=== PATIENT | male | born 1985 | race Two or more races ===

== ENCOUNTER 2017-11-07 10:04 | Emergency (ER) | payer OTHER ==
[2017-11-07] MEDS: HYDROcodone/APAP 5/325MG 1 TAB TABLET PO (12:08)
== END 2017-11-07 13:17 | disposition home or self-care (01) ==
LOC: ER 10:04
DX: R10.30 Lower abdominal pain, unspecified (principal); X50.9XXA Other and unspecified overexertion or strenuous movements or postures, initial encounter; Y93.89 Activity, other specified; Y99.8 Other external cause status; Y92.89 Other specified places as the place of occurrence of the external cause
CPT/HCPCS: 76870; 99284-25